=== PATIENT | female | born 2000 | race Caucasian/White ===

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

== ENCOUNTER 2019-02-18 11:32 | Emergency (ER) | payer OTHER ==
[2019-02-18 11:36] VITALS: BP 132/91; PULSE 89; RESP 18; TEMP 98.3
--- NOTE | 2019-02-18 11:41 | ED ---
Upper Extremity HPI - General Chief Complaint: Extremity Injury, Upper Stated Complaint: finger injury Time Seen by Provider: 02/18/19 11:36 Source: patient, RN notes reviewed Mode of arrival: ambulatory Limitations: no limitations - History of Present Illness Initial Comments: This a 18-year-old female presents emergency Department with chief complaint of right hand second digit pain. Patient states that she went to grab it out last night and states Between the dog, table and wall. Patient states she has pain, swelling. Patient denies any paresthesias states it's too painful to fully straighten or bend. She's had no prior injuries she is [id number]. - Related Data Allergies Allergy/AdvReac Type Severity Reaction Status Date / Time Penicillins Allergy Rash/Hives Verified 02/18/19 11:35 Review of Systems ROS Statement: Those systems with pertinent positive or pertinent negative responses have been documented in the HPI. ROS Other: All systems not noted in ROS Statement are negative. Past Medical History Past Medical History: No Reported History History of Any Multi-Drug Resistant Organisms: None Reported Past Surgical History: No Surgical Hx Reported Past Psychological History: No Psychological Hx Reported Smoking Status: Never smoker Past Alcohol Use History: None Reported Past Drug Use History: None Reported General Exam Limitations: no limitations General appearance: alert, in no apparent distress Head exam: Present: atraumatic, normocephalic, normal inspection Eye exam: Present: normal appearance, PERRL, EOMI. Absent: scleral icterus, conjunctival injection, periorbital swelling ENT exam: Present: normal exam, normal oropharynx, mucous membranes moist Neck exam: Present: normal inspection, full ROM. Absent: tenderness, meningismus, lymphadenopathy Respiratory exam: Present: normal lung sounds bilaterally. Absent: respiratory distress, wheezes, rales, rhonchi, stridor Cardiovascular Exam: Present: regular rate, normal rhythm, normal heart sounds. Absent: systolic murmur, diastolic murmur, rubs, gallop, clicks Extremities exam: Present: other (Right hand second digit there is moderate swelling to the MCP and PIP patient has pain with range of motion though full range of motion neurovascular intact there is mild tenderness proximal to MCP region) Course Vital Signs 02/18/19 11:33 Temperature 98.3 F Pulse Rate 89 Respiratory 18 Rate Blood Pressure 132/91 O2 Sat by Pulse 97 Oximetry Medical Decision Making - Medical Decision Making X-ray of the hand shows no acute osseous abnormality. Patient has a right hand finger sprain. Patient will be discharged in stable condition return parameters were discussed. Disposition Clinical Impression: Sprain of finger of right hand Disposition: HOME SELF-CARE Condition: Stable Instructions (If sedation given, give patient instructions): Finger Sprain (ED) Additional Instructions: Please return to the Emergency Department if symptoms worsen or any other concerns. Is patient prescribed a controlled substance at d/c from ED?: No Referrals: None,Stated [Primary Care Provider] - 1-2 days Time of Disposition: 12:16
--- NOTE | 2019-02-18 12:14 | XR ---
EXAMINATION TYPE: XR hand complete RT , 3 VIEWS DATE OF EXAM ORDERED: 02/18/2019 HISTORY: Right hand pain, second digit pain. COMPARISON: None. FINDINGS: No fracture, dislocation or other acute osseous lesion is seen. IMPRESSION: NO ACUTE OSSEOUS LESION.
== END 2019-02-18 12:24 | disposition home or self-care (01) ==
LOC: EC 11:32
DX: S63.610A Unspecified sprain of right index finger, initial encounter (principal); Z88.0 Allergy status to penicillin; X58.XXXA Exposure to other specified factors, initial encounter
CPT/HCPCS: 99283

== ENCOUNTER → 2023-07-22 | Outpatient (CLI) | payer OTHER ==
--- NOTE | 2023-07-22 11:23 | XR ---
EXAMINATION TYPE: XR tibia fibula RT DATE OF EXAM: 07/22/2023 COMPARISON: NONE HISTORY: Pain and bruising TECHNIQUE: Two views are submitted. FINDINGS: The osseous structures are intact. The joint spaces are preserved. Calcaneal spurs. Trace amount of fluid in the suprapatellar bursa. IMPRESSION: 1. No acute osseous abnormality.
== END | disposition home or self-care (01) ==
LOC: RADXRMAIN 10:45
PROVIDERS: ATTEND Emergency Medicine
DX: S80.11XA Contusion of right lower leg, initial encounter (principal)

== ENCOUNTER 2024-08-30 21:57 | Emergency (ER) | payer BC, OTHER ==
[2024-08-30] MEDS: KETOROLAC 15 MG/ML 1 ML VIAL IM STA (23:18)
[2024-08-30] MEDS: DEXAMETHASONE SOD PHOSPHATE 10 MG/ML 1 ML VIAL IM STA (23:18)
[2024-08-30] MEDS: ORPHENADRINE 30 MG/ML 2 ML VIAL IM STA (23:19)
[2024-08-30] MEDS: LIDOCAINE 4% PATCH TOPICAL ONE (23:19)
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
[2024-08-31 01:32] VITALS: BP 144/92; PULSE 81; RESP 18; TEMP 97.7
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
== END 2024-08-31 05:26 | disposition home or self-care (01) ==
LOC: EC 21:57
DX: S39.012A Strain of muscle, fascia and tendon of lower back, initial encounter (principal); Z88.0 Allergy status to penicillin; V43.52XA Car driver injured in collision with other type car in traffic accident, initial encounter
CPT/HCPCS: 72110; 99283; 96372; J1100; J2360; J1885